=== PATIENT | male | born 1975 | race Caucasian/White ===

== ENCOUNTER 2024-11-16 12:57 | Inpatient (IN) | payer BC ==
[2024-11-16] MEDS ORDERED: MAG HYDROX/AL HYDROX/SIMETH 355 ML BOTTLE PO PRN (15:57)
[2024-11-16] MEDS ORDERED: haloperidoL 5 MG TAB PO PRN (15:57)
[2024-11-16] MEDS ORDERED: IBUPROFEN 600 MG TAB PO PRN (15:57)
[2024-11-16] MEDS ORDERED: HALOPERIDOL LACTATE 5 MG/ML 1 ML VIAL IM PRN (15:57)
[2024-11-16] MEDS ORDERED: MAGNESIUM HYDROXIDE 2,400 MG/30 ML CUP PO PRN (15:57)
[2024-11-16] MEDS ORDERED: LORazepam 2 MG/ML INJ IM PRN (15:57)
[2024-11-16] MEDS ORDERED: LORazepam 1 MG TAB PO PRN (15:57)
[2024-11-16] MEDS ORDERED: ACETAMINOPHEN TAB 325 MG TAB PO PRN (15:57)
--- NOTE | 2024-11-17 01:55 | P.MDCNMH ---
<Kelsey Issa - Last Filed: 11/17/24 01:50> History of Present Illness H&P Date: 11/16/24 Patient is a 49 year old male with depression, admitted to MHU. He is seen today in medical consultation for medical management. Patient initially presented to [facility] for neck swelling. He had a CT scan of the neck done that showed tonsillitis with tonsillolith and he was treated with Decadron and amoxicillin. He was then transferred to our facility for depression and suicidal ideation. Patient seen today in medical consultation for medical management. Denies fever, chills, shortness of breath, cough, chest pain, palpitations, abdominal pain, nausea, vomiting, hematuria, dysuria, hematochezia, melena, headache, slurred speech, numbness, tingling, dizziness, lightheadedness, blurred vision, double vision. Vitals T 92 1 F, WV 102 bpm, RR 20, BP 136/98, SpO2 95% on room air Review of systems: Pertinent positives and negatives as discussed in HPI, a complete review of systems was performed and all other systems are negative. Physical examination: Vital signs reviewed General: nontoxic, no distress, appears at stated age Derm: warm, dry, intact Head: atraumatic, normocephalic, symmetric Eyes: EOMI, anicteric sclera Mouth: no lip lesion, mucus membranes moist Cardiovascular: S1 S2 reg, no murmur Lungs: CTA bilateral, no rhonchi, no rales, no accessory muscle use Abdominal: soft, non-tender to palpation Extremities: No cyanosis, clubbing, or pedal edema. Neuro: Alert, Oriented, Gross neurological examination did not reveal any focal deficits. Psych: well appearing, appropriate affect Assessment/Plan: Patient is a 49 year old male with depression, admitted to MHU. He is seen today in medical consultation for medical management. #. Tonsilitis #. Tonsilolith Patient had a CT scan of the neck at [facility] that showed mild right tonsillitis with tonsillolith Received 1 dose of Decadron and amoxicillin at [facility] Start Augmentin 500-125 mg p.o. twice daily Obtain strep group A PCR Obtain CBC, CMP, CRP Monitor vital signs #. GI upset #. Constipation Continue Maalox 30 mL p.o. every 4 hours as needed and milk of magnesia 25 mg p.o. daily as needed #. Depression #. Suicidal ideation Currently on Haldol 5 mg p.o. every 6 hours as needed, Haldol 5 mg IM every 6 hours as needed, Ativan 1 mg p.o. every 6 hours as needed, Ativan 1 mg IM every 6 hours as needed per admitting psych team Tylenol and Motrin for pain management Thank you for the consult. Please feel free to reach out in case of any questions. Dictation was produced using [employer] dictation software. please excuse any grammatical, word or spelling errors. Kelsey Issa MD PGY-1 IM Past Medical History Past Medical History: No Reported History History of Any Multi-Drug Resistant Organisms: None Reported Past Surgical History: No Surgical Hx Reported Past Psychological History: No Psychological Hx Reported Smoking Status: Never smoker Past Alcohol Use History: Occasional Past Drug Use History: None Reported Medications and Allergies Allergies Allergy/AdvReac Type Severity Reaction Status Date / Time No Known Allergies Allergy Verified 11/16/24 15:56 Physical Exam Vitals: Vital Signs Temp Pulse Resp BP Pulse Ox 11/16/24 15:40 98.1 F 122 H 20 136/98 95 Intake and Output 11/16/24 11/16/24 11/16/24 06:59 14:59 22:59 Other: Weight 88.405 kg Cranial Nerve Examination - Cranial Nerves Cranial Nerve I- Olfactory: Intact Cranial Nerve II- Optic: Intact Cranial Nerve III- Oculomotor: Intact Cranial Nerve IV- Trochlear: Intact Cranial Nerve V- Trigeminal: Intact Cranial Nerve - Abducens: Intact Cranial Nerve VII- Facial: Intact Cranial Nerve VIII- Auditory: Intact Cranial Nerve IX- Glossopharyngeal: Intact Cranial Nerve X- Vagus: Intact Cranial Nerve XI- Accessory: Intact Cranial Nerve XII- Hypoglossal: Intact <Alonzo May - Last Filed: 11/17/24 04:17> History of Present Illness Attestation : Patient seen and examined with medical supply technician. Agree with above assessment and plan. Patient 49-year-old admitted under behavioral unit for management of depression. Patient initially presented to [facility] for neck swelling. He had a CT scan of the neck done that showed tonsillitis with tonsillolith and he was treated with Decadron and amoxicillin . Swelling improved. Patient to continue with Augmentin and will order strep throat PCR. Obtain CBC, comprehensive metabolic panel and CRP. No complaints of respiratory distress Time spent : 40 min Physical Exam Vitals: Vital Signs Temp Pulse Resp BP Pulse Ox 11/16/24 21:00 97.4 F L 104 H 18 144/98 100 11/16/24 15:40 98.1 F 122 H 20 136/98 95 Intake and Output 11/16/24 11/16/24 11/17/24 14:59 22:59 06:59 Other: Weight 88.405 kg
[2024-11-17 07:23] LABS: Basophils # (A) 0.04 10*3/uL (0.00-0.10); Basophils % (A) 0.3 %; Eosinophils # (A) 0.01 10*3/uL (0.04-0.35); Eosinophils % (A) 0.1 %; HCT 43.4 % (39.6-50.0); HGB 16.1 g/dL (13.0-17.0); Lymphocytes # (A) 2.02 10*3/uL (0.90-5.00); Lymphocytes % (A) 16.6 %; MCH 31.4 pg (27.0-32.0); MCHC 37.1 g/dL (32.0-37.0); MCV 84.6 fL (80.0-97.0); Mean Platelet Volume 10.1 fL (9.5-12.2); Monocytes # (A) 0.95 10*3/uL (0.20-1.00); Monocytes % (A) 7.8 %; Neutrophils # (A) 9.11 10*3/uL (1.80-7.70); Neutrophils % (A) 74.8 %; Platelet Count 298 10*3/uL (140-440); RBC 5.13 10*6/uL (4.40-5.60); WBC 12.18 10*3/uL (4.50-10.00)
[2024-11-17 07:38] LABS: ALT 29 U/L (4-49); AST 22 U/L (17-59); African American GFR (CKD) >90 (>60 ml/min/1.73 sqM); Albumin 4.4 g/dL (3.5-5.0); Alkaline Phosphatase 49 U/L (38-126); Anion Gap 13 mmol/L; Blood Urea Nitrogen 21 mg/dL (9-20); Calcium 10.1 mg/dL (8.4-10.2); Carbon Dioxide 23 mmol/L (22-30); Chloride 103 mmol/L (98-107); Glucose 114 mg/dL (74-99); Non-African American GFR(CKD) >90 (>60 ml/min/1.73 sqM); Potassium 3.9 mmol/L (3.5-5.1); Sodium 139 mmol/L (137-145); Total Bilirubin 0.6 mg/dL (0.2-1.3); Total Protein 6.9 g/dL (6.3-8.2)
[2024-11-17] MEDS: AMOXIC-POT CLAV 500-125 MG 1 EACH TAB PO SCH (10:13)
--- NOTE | 2024-11-17 12:52 | P.HP ---
Psychiatric H&P - . H&P Date: 11/17/24 History & Physical: Allergies Allergy/AdvReac Type Severity Reaction Status Date / Time No Known Allergies Allergy Verified 11/16/24 15:56 Vital Signs Temp 97.6 F 11/17/24 11:15 Pulse 96 11/17/24 11:15 Resp 16 11/17/24 11:15 BP 132/70 11/17/24 11:15 Pulse Ox 98 11/17/24 11:15 FiO2 Intake & Output 11/16/24 11/17/24 11/17/24 18:59 06:59 18:59 Weight 88.405 kg Laboratory Last Values WBC 12.18 10*3/uL (4.50-10.00) H 11/17/24 07:08 RBC 5.13 10*6/uL (4.40-5.60) 11/17/24 07:08 Hgb 16.1 g/dL (13.0-17.0) 11/17/24 07:08 Hct 43.4 % (39.6-50.0) 11/17/24 07:08 MCV 84.6 fL (80.0-97.0) 11/17/24 07:08 MCH 31.4 pg (27.0-32.0) 11/17/24 07:08 MCHC 37.1 g/dL (32.0-37.0) H 11/17/24 07:08 Plt Count 298 10*3/uL (140-440) 11/17/24 07:08 MPV 10.1 fL (9.5-12.2) 11/17/24 07:08 Immature Gran % (Auto) 0.4 % 11/17/24 07:08 Neutrophils % 74.8 % 11/17/24 07:08 Lymphocytes % 16.6 % 11/17/24 07:08 Monocytes % 7.8 % 11/17/24 07:08 Eosinophils % 0.1 % 11/17/24 07:08 Basophils % 0.3 % 11/17/24 07:08 Immature Gran # 0.05 10*3/uL (0.00-0.04) H 11/17/24 07:08 Neutrophils # 9.11 10*3/uL (1.80-7.70) H 11/17/24 07:08 Lymphocytes # 2.02 10*3/uL (0.90-5.00) 11/17/24 07:08 Monocytes # 0.95 10*3/uL (0.20-1.00) 11/17/24 07:08 Eosinophils # 0.01 10*3/uL (0.04-0.35) L 11/17/24 07:08 Basophils # 0.04 10*3/uL (0.00-0.10) 11/17/24 07:08 Sodium 139 mmol/L (137-145) 11/17/24 07:08 Potassium 3.9 mmol/L (3.5-5.1) 11/17/24 07:08 Chloride 103 mmol/L (98-107) 11/17/24 07:08 Carbon Dioxide 23 mmol/L (22-30) 11/17/24 07:08 Anion Gap 13 mmol/L 11/17/24 07:08 BUN 21 mg/dL (9-20) H 11/17/24 07:08 Creatinine 0.85 mg/dL (0.66-1.25) 11/17/24 07:08 Est GFR (CKD-EPI)AfAm >90 (>60 ml/min/1.73 sqM) 11/17/24 07:08 Est GFR (CKD-EPI)NonAf >90 (>60 ml/min/1.73 sqM) 11/17/24 07:08 Glucose 114 mg/dL (74-99) H 11/17/24 07:[address] Glu mg/dL 120 mg/dL 11/17/24 07:08 Hemoglobin A1c 5.8 % (<=6.0) 11/17/24 07:08 Calcium 10.1 mg/dL (8.4-10.2) 11/17/24 07:08 Total Bilirubin 0.6 mg/dL (0.2-1.3) 11/17/24 07:08 AST 22 U/L (17-59) 11/17/24 07:08 ALT 29 U/L (4-49) 11/17/24 07:08 Alkaline Phosphatase 49 U/L (38-126) 11/17/24 07:08 C-Reactive Protein <0.5 mg/dL (<1.0) 11/17/24 07:08 Total Protein 6.9 g/dL (6.3-8.2) 11/17/24 07:08 Albumin 4.4 g/dL (3.5-5.0) 11/17/24 07:08 TSH 0.106 mIU/L (0.465-4.680) L 11/17/24 07:08 11/17/24 12:32 IDENTIFYING DATA: Patient is a 49 year old male, and 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 Per EPS, "Cl presented at [facility] ED with SI w plan to hang themselves. Cl reports persistent and intrusive thoughts related to this. Recently diagnosed with thrush cl had been experiencing increased depression. Cl started on Zoloft 4 days ago and has had increased SI w plan. Cl also reports increased muscle tension and ringing in their ears." Patient seen and evaluated on the unit and was agreeable with speaking to principal technical writer in office. He states he was placed on zoloft and took this for 3 days which he states was for anxiety related to his swallowing difficulties and inability to speak. CT neck from outside facility revealed tonsillitis with tonsillolith abd patient was given steroid and started on antibiotics. Patient developed adverse effects after starting zoloft including hot/cold flashes, nightmares of him wanting to kill himself that was so severe that he intentionally kept himself awake at night. He stopped zoloft on Friday and these symptoms have slowly subsided, patient noticing the best sleep he has had in awhile last night. He denied any past psychiatric history and reports his mood as stable otherwise. He reports a strong support network including his and children and was goal-oriented today. He reports recent sleep and appetite difficulties related to zoloft and his swallowing difficulties, respectively. He denied any energy changes, anhedonia or difficulties concentrating. Patient denies any suicidal or homicidal ideations intent or plan. At this time patient denies any auditory or visual hallucinations. Patient denies any flight of ideas, racing thoughts and increased in goal directed behavior. He denied using any substances. PAST PSYCHIATRIC HISTORY: Patient has no past psychiatric history. Patient recently was briefly on zoloft but he self-discontinued this 3 days ago. He denies any past hospitalizations. Patient denies any outpatient care. Patient denies any history of suicide attempts in the past. PMH: as per ER note ALLERGIES: as per EMR SUBSTANCE USE HISTORY: As per HPI FAMILY PSYCHIATRIC/SUBSTANCE USE HISTORY: denies SOCIAL HISTORY: Patient is and has 4 children. He lives with . 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 Patient appears to have fair hygiene and grooming. Behavior: Patient is seated without any agitated behavior. Speech: Patient's speech is fluent and nonpressured. Mood/Affect: Patient reports their mood is "good" affect is congruent and reactive Suicidality/Homicidality: Patient denies having any homicidal ideation intent or plan. Denies any suicidal ideations intent or plan Perceptions: Patient denies any visual hallucinations and denies any auditory hallucinations Though content/process: There is no evidence of any delusional thought content and thought process is linear and goal-directed. Memory and concentration: AOX3, grossly intact for the purposes of this session. Can spell "WORLD" backwards Judgment and insight: Good STRENGTHS/WEAKNESSES: strength is that patient is resilient and has a strong support network. 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 Patient has signed adult voluntary form and and is placed in patient's chart. -Medications : will continue to hold zoloft given adverse effects -Internal Medicine consult to perform medical evaluation and physical. Started augmentin for tonsilitis -NRT - not needed as patient does not smoke -SW on board for discharge planning. Encourage patient to participate in groups to work on coping skills. Will monitor patient for 24 hours then will anticipate discharge tomorrow, home with pending stabilization in suicidal thoughts
[2024-11-17 16:14] LABS: Chol/HDL Ratio 2.42 Ratio; LDL Cholesterol,Calculated 51.6 mg/dL (0.0-131.0); VLDL Calculation 15.22 mg/dL (5.00-40.00)
[2024-11-17] MEDS: AMOXIC-POT CLAV 875-125MG 1 EACH TAB PO SCH (21:05)
[2024-11-17 23:09] VITALS: RESP 18
--- NOTE | 2024-11-18 12:00 | P.DS ---
Providers Date of admission: 11/16/24 15:23 Expected date of discharge: 11/18/24 Attending physician: Yojana Echevarria MD Consults: 11/16/24 15:57 Consult Physician Routine Consulting Provider: Malcolm Marte Consult Reason/Comments: History and Physical, New Admission Do you want consulting provider notified?: Yes Primary care physician: Renetta Man, DO - Discharge Diagnosis(es) (1) Other specified depressive episodes Current Visit: Yes Status: Acute Priority: High (2) Anxiety disorder due to medical condition Current Visit: Yes Status: Acute Priority: High Hospital Course: Admission HPI: Admission note was completed by insurance underwriter "Patient presented to the hospital with suicidal ideations with a plan. Per EPS, "Cl presented at [facility] ED with SI w plan to hang themselves. Cl reports persistent and intrusive thoughts related to this. Recently diagnosed with thrush cl had been experiencing increased depression. Cl started on Zoloft 4 days ago and has had increased SI w plan. Cl also reports increased muscle tension and ringing in their ears." Patient seen and evaluated on the unit and was agreeable with speaking to insurance underwriter in office. He states he was placed on zoloft and took this for 3 days which he states was for anxiety related to his swallowing difficulties and inability to speak. CT neck from outside facility revealed tonsillitis with tonsillolith abd patient was given steroid and started on antibiotics. Patient developed adverse effects after starting zoloft including hot/cold flashes, nightmares of him wanting to kill himself that was so severe that he intentionally kept himself awake at night. He stopped zoloft on Friday and these symptoms have slowly subsided, patient noticing the best sleep he has had in awhile last night. He denied any past psychiatric history and reports his mood as stable otherwise. He reports a strong support network including his and children and was goal-oriented today. He reports recent sleep and appetite difficulties related to zoloft and his swallowing difficulties, respectively. He denied any energy changes, anhedonia or difficulties concentrating. Patient denies any suicidal or homicidal ideations intent or plan. At this time patient denies any auditory or visual hallucinations. Patient denies any flight of ideas, racing thoughts and increased in goal directed behavior. He denied using any substances." Hospital course: Upon admission to the unit patient was directable and agreeable to commence treatment and signed adult voluntary form.. Patient got along well with other patients on the unit and followed unit protocol. Patient was compliant with the medications and denied any side effects throughout hospital course. Given the severe adverse effects from Zoloft, this was held and patient was monitored for 24 hours before deemed safe for discharge back home with . Patient spoke of his stressors and engaged in therapy both group and individual. Patient was also seen by medical team for history and physical exam. Throughout the course of the hospitalization patient gradually improved with regards to mood, anxiety, sleep and returned back to their baseline level of functioning. On the day of discharge patient denied any suicidal or homicidal ideations intent or plan denied any auditory or visual hallucinations. The patient denied any access to guns or weapons. Patient denied any paranoia and did not endorse any delusions. Patient does not have a significant history of substance abuse and was counseled on abstaining from all substances including alcohol and marijuana. Patient was also counseled on the medications and need for regular compliance and was encouraged to follow-up with their outpatient appointment for mental health and also for primary care. Prior to discharge a family meeting will be arranged by oncology social work to answer any questions and ensure safety upon discharge including making sure that guns/weapons are either removed from the home or locked away. Patient to be discharged home with and will follow-up with [facility] Mental status exam: General Appearance: Patient appears to be stated age is alert, pleasant, and cooperative. Patient is in no acute distress and has fair hygiene and grooming Behavior: Patient is calmly seated without any agitated behavior. Speech: Patient's speech is fluent and nonpressured. Mood/Affect: Patient reports their mood is "better", affect is congruent and euthymic, reactive. Suicidality/Homicidality: Patient denies having any suicidal or homicidal ideation intent or plan. Perceptions: Patient denies any auditory or visual hallucinations. Though content/process: There is no evidence of any delusional thought content and thought process is linear and goal-directed. More future oriented Memory and concentration: AOX3, grossly intact for the purposes of this session. Can spell "WORLD" backwards correctly. Judgment and insight: Good Impression: Other depressive episodes (medication induced depressive disorder) Anxiety due to medical condition Plan: -Continue with discharge today as patient has improved and stabilized psychiatrically and is not currently an imminent threat to themself and/or others. -Continue medications: None -Patient was counseled on the need for medication compliance and appropriate follow-up at mental health and also primary care for medical issues. Patient verbalized understanding and agreed. -Social work to help coordinate patients discharge today arrange for and conduct family meeting to ensure safety upon discharge and answer any questions/concerns. also to ensure safe home environment that guns/weapons are either removed from the home or locked away. Social work also to arrange for patients follow up appointments with Rashid lerma for psychiatric care along with follow up with primary care provider. -Patient counseled on abstaining from recreational drugs and marijuana and alcohol. Was informed/educated on the adverse effects on their physical and mental health. Patient verbally agreed and understood. -Patient was instructed to return to the hospital or seek immediate medical care if their psychiatric or medical symptoms do worsen or reoccur. Abnormal Labs 11/17/24 11/17/24 11/17/24 07:08 07:08 07:08 WBC 12.18 H MCHC 37.1 H Immature Gran # 0.05 H Neutrophils # 9.11 H Eosinophils # 0.01 L BUN 21 H Glucose 114 H TSH 0.106 L Free T4 2.64 H Allergies Allergy/AdvReac Type Severity Reaction Status Date / Time No Known Allergies Allergy Verified 11/16/24 15:56 Vital Signs Temp 97.2 F L 11/17/24 21:00 Pulse 98 11/17/24 21:00 Resp 18 11/17/24 21:00 BP 138/75 11/17/24 21:00 Pulse Ox 96 11/17/24 21:00 FiO2 Patient Condition at Discharge: Stable Plan - Discharge Summary Discharge Rx Participant: Yes New Discharge Prescriptions: New Amoxic-Pot Clav 875-125Mg [Augmentin 875-125] 1 each PO BID 15 Days #30 tab Discharge Medication List Amoxic-Pot Clav 875-125Mg [Augmentin 875-125] 1 each PO BID 15 Days #30 tab 11/18/24 [Rx] Follow up Appointment(s)/Referral(s): [facility] Lerm[facility] [Other] - 11/29/24 10:00 am (11/29 @ 10:00 Please watch for email with paperwork prior to appt.) Renetta Man DO [Primary Care Provider] - 1 Week Discharge Disposition: HOME SELF-CARE
[2024-11-18 13:22] VITALS: BP 130/94; PULSE 94; TEMP 98.2
== END 2024-11-18 13:15 | disposition home or self-care (01) | DRG 881 ==
LOC: 3MHU 15:23
PROVIDERS: ADMIT Psychiatry & Neurology Psychiatry; ATTEND Psychiatry & Neurology Psychiatry
DX: F32.9 Major depressive disorder, single episode, unspecified (principal); B37.0 Candidal stomatitis; F32.89 Other specified depressive episodes; R45.851 Suicidal ideations; F06.4 Anxiety disorder due to known physiological condition; J03.90 Acute tonsillitis, unspecified; T49.6X5A Adverse effect of otorhinolaryngological drugs and preparations, initial encounter; K59.00 Constipation, unspecified; Z28.21 Immunization not carried out because of patient refusal; K30 Functional dyspepsia
CPT/HCPCS: 80053; 80061; 83036; 84439; 84443; 85025; 86140; 87651